=== PATIENT | male | born 1950 | race Caucasian/White ===

== ENCOUNTER 2024-11-06 13:06 | Emergency (ER) | payer MEDICARE, SELFPAY ==
--- NOTE | ~2024-11-06 | XR_ITS ---
XR shoulder LT min 2V Ordering provider: Grace Griffith APRN History: . left shoulder injury . Comparison: None. FINDINGS: BONES: No acute fracture or dislocation. JOINT SPACES: The acromioclavicular joint shows minimal elevation suggestive of minimal subluxation. The glenohumeral joint is normal. SOFT TISSUES: Normal. IMPRESSION: Minimal subluxation of the acromioclavicular joint. Otherwise, No acute osseous abnormality left shou lder. Reviewed, dictated and finalized at location A. IMPRESSION: Minimal subluxation of the acromioclavicular joint. Otherwise, No acute osseous abnormality left shoulder.
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
[2024-11-06 13:17] VITALS: BP 146/84; PULSE 101; RESP 16; TEMP 36.6; O2SAT 98
== END 2024-11-06 14:10 | disposition home or self-care (01) ==
PROVIDERS: Emergency Provider Nurse Practitioner
DX: S43.112A Subluxation of left acromioclavicular joint, initial encounter (principal); V18.4XXA Pedal cycle driver injured in noncollision transport accident in traffic accident, initial encounter; I10 Essential (primary) hypertension; E78.00 Pure hypercholesterolemia, unspecified
CPT/HCPCS: 73030; 99204; A4565; G0463